=== PATIENT | female | born 1975 | race African-American/Black ===

== ENCOUNTER 2016-09-29 13:32 | Emergency (ER) | payer MEDICAID ==
[~2016-09-29] VITALS: Ht 177.8 cm; Wt 63.8 kg
[~2016-09-29 13:32] MED LIST: ALPR0.25 PO; LEVE500T53 PO; MAGN400T26 PO; METH10TA6 PO; METH2.5T PO; METH4TAB PO; METH4TAB7 PO; PROP40TA PO
[2016-09-29 14:18] VITALS: BP 148/84
== END 2016-09-29 14:21 | disposition home or self-care (01) ==
LOC: ED 14:00
DX: Z76.0 Encounter for issue of repeat prescription (principal); E05.90 Thyrotoxicosis, unspecified without thyrotoxic crisis or storm; M06.9 Rheumatoid arthritis, unspecified
CPT/HCPCS: 99283

== ENCOUNTER 2016-11-13 11:23 | Emergency (ER) | payer MEDICAID ==
[~2016-11-13] VITALS: Ht 177.8 cm; Wt 67.0 kg
[2016-11-13 11:37] VITALS: BP 113/69
== END 2016-11-13 12:57 | disposition home or self-care (01) ==
LOC: ED 11:45
DX: Z76.0 Encounter for issue of repeat prescription (principal); M06.9 Rheumatoid arthritis, unspecified; E05.90 Thyrotoxicosis, unspecified without thyrotoxic crisis or storm
CPT/HCPCS: 99283

== ENCOUNTER 2018-05-14 10:06 | Emergency (ER) | payer MEDICAID ==
[~2018-05-14] VITALS: Ht 177.8 cm; Wt 73.0 kg
[2018-05-14 10:11] VITALS: BP 143/84
--- NOTE | 2018-05-14 10:37 | NUR ---
Patient/Caregiver given discharge instructions and they have confirmed that they understand the instructions. Patient ambulatory with steady gait.
== END 2018-05-14 11:20 | disposition home or self-care (01) ==
LOC: ED 10:40
DX: M06.842 Other specified rheumatoid arthritis, left hand (principal); M06.841 Other specified rheumatoid arthritis, right hand; Z76.0 Encounter for issue of repeat prescription; E03.9 Hypothyroidism, unspecified
CPT/HCPCS: 99283